=== PATIENT | female | born 1965 | race Caucasian/White ===

== ENCOUNTER 2016-09-29 00:01 | Outpatient (CLI) | payer MEDICAID | END 2016-09-29 23:59 | disposition home or self-care (01) | LOC: D.RAD 00:01 | DX: M25.561 Pain in right knee (principal) ==

== ENCOUNTER → 2016-10-20 08:26 | Outpatient (CLI) | payer MEDICAID | LOC: D.MRI 10-15 15:30 | DX: M25.561 Pain in right knee (principal) ==

== ENCOUNTER 2016-12-14 20:15 | Emergency (ER) | payer MEDICAID | END 2016-12-14 21:10 | disposition left against medical advice (07) | LOC: D.ER 20:15 | DX: R52 Pain, unspecified (principal) ==

== ENCOUNTER 2017-06-14 08:02 | Emergency (ER) | payer MEDICAID ==
[2017-06-18] MEDS ORDERED: SEROQUEL50 MG PO (11:39)
[2017-06-18] MEDS ORDERED: BUSPAR 15 MG TA15 MG PO (11:40)
[2017-06-18] MEDS ORDERED: KLONOPIN1 MG PO (11:40)
[2017-06-18] MEDS ORDERED: TOPROL XL25 MG PO (11:41)
[2017-06-19 13:50] VITALS: BMI 29.8
== END 2017-06-14 09:42 | disposition home or self-care (01) ==
LOC: D.ER 08:02
DX: S52.502A Unspecified fracture of the lower end of left radius, initial encounter for closed fracture (principal); S52.532A Colles' fracture of left radius, initial encounter for closed fracture; W06.XXXA Fall from bed, initial encounter; Y93.89 Activity, other specified; Y92.013 Bedroom of single-family (private) house as the place of occurrence of the external cause; I10 Essential (primary) hypertension; B19.20 Unspecified viral hepatitis C without hepatic coma

== ENCOUNTER 2017-06-19 09:55 | Day surgery (SDC) | payer MEDICAID ==
[~2017-06-19] VITALS: Ht 170.2 cm; Wt 86.2 kg
[~2017-06-19 09:55] MED LIST: BUSPAR 15 MG TA15 MG PO; KLONOPIN1 MG PO; SEROQUEL50 MG PO; TOPROL XL25 MG PO
[2017-06-19 12:36] LABS: HEMATOCRIT 36.8 % (36.0-48.0); HEMOGLOBIN 12.4 g/dL (12-16); MCHC 33.7 g/dL (31.0-37.0); MCV 97.9 fL (80.0-100.0); MEAN PLATELET VOLUME 9.4 fL (7.4-10.4); RBC 3.76 10x6/uL (4.00-5.40)
[2017-06-19 12:52] LABS: APTT 29.6 SECONDS (22.8-39.4); INR 1.09 (0.85-1.17); PROTIME 13.7 SECONDS (11.6-15.0)
[2017-06-19 13:02] LABS: ALBUMIN 3.2 g/dL (3.4-5.0); ALKALINE PHOSPHATASE 70 U/L (46-116); ALT (SGPT) 30 U/L (10-68); BILIRUBIN - TOTAL 0.88 mg/dL (0.2-1.3); CALC OSMOLALITY 275 mosm/kg (275-300); CALCIUM 8.8 mg/dL (8.5-10.1); CARBON DIOXIDE 27.8 mmol/L (21.0-32.0); CHLORIDE - SERUM 104 mmol/L (98-107); CREATININE - SERUM 0.6 mg/dL (0.6-1.3); GLUCOSE 107 mg/dL (74-106); POTASSIUM - SERUM 3.7 mmol/L (3.5-5.1); PROTEIN - SERUM 6.5 g/dL (6.4-8.2); SODIUM 140 mmol/L (136-145); UREA NITROGEN 5 mg/dL (7-18); eGFR NON AFRICAN AMERICAN > 90 mL/min (90-120)
[2017-06-19 13:50] VITALS: Ht 170.2 cm; Wt 86.2 kg
[2017-06-19] MEDS ORDERED: PERCOCET 10/3251 TA1 PO (15:13)
[2017-06-19] MEDS ORDERED: HYDROCODONE-APA1 TAB PO (17:34)
--- NOTE | 2017-06-19 20:58 | NUR ---
1735 BACK FROM ORID OF LEFT WRIST. ARM IN SLING ICED AND ELEVATED. FINGERS NOT SWOLLEN COLOR PINK,FINGERS NUMB.
--- NOTE | 2017-06-19 21:03 | NUR ---
1805 LT ARM IN SLING CAP REFILL IMMEDIATE. COLOR PINK. ICED AND ELEVATED.
--- NOTE | 2017-06-19 21:07 | NUR ---
1835 IV DCD CATHETER INTACT. WENT OVER DISCHARGE INSTRUCTIONS AND VERBALLY UNDERSTANDS, WENT OVER FOLLOW UP BLOCK INFORMATION SCRIPT AND VERBALLY UNDERSTANDS, INSTRUCTED TO KEEP SLING ON TIL FULL FEELING OF ARM AND ICE AND ELEVATE.
--- NOTE | 2017-06-19 21:08 | NUR ---
1840 TO HOME VIA W/C WITH SPOUSE.
--- NOTE | 2017-06-25 09:04 | OP ---
PATIENT NAME: LING GALLEGOS MEDICAL RECORD: [id number] :65 LOCATION:[facility] ADMISSION DATE: SURGEON: NARESH DELEON MD DATE OF OPERATION: 06/19/2017 PREOPERATIVE DIAGNOSIS: Left distal radius fracture. POSTOPERATIVE DIAGNOSIS: Left distal radius fracture. PROCEDURE: Open reduction internal fixation of left distal radius fracture. SURGEON: Naresh Deleon MD ANESTHESIA: General. INTRAOPERATIVE COMPLICATIONS: None. SUMMARY OF PATHOLOGIC FINDINGS: The patient had a distal radius fracture that was displaced; however, it was not articular, reduced nicely and was held nicely with a volar plate from [place]. OPERATIVE SUMMARY IN DETAIL: After obtaining the appropriate preoperative orthopedic surgery consent as well as anesthetic consultation, evaluation and clearance, the patient was brought to the operating room and placed on the operating table in placed in supine position. After general laryngeal mask airway was administered, tourniquet was placed about the proximal aspect of the left upper extremity. Left upper extremity was then prepped and draped in routine sterile fashion. The arm was elevated and exsanguinated, tourniquet inflated to 250 mmHg. Routine curvilinear incision was made in keeping Herb's volar approach. A formal carpal tunnel release was performed and this was taken down to the FCR, which was used as a landmark. Median nerve was identified and retracted to the ulnar side. Pronature quadratus was taken down. Plate was then positioned after a reduction maneuver was performed. Serial and sequential drill and fill were done with a combination of both locking and nonlocking compression screws. Final radiographs were submitted under fluoroscopy for radiologist review. The wound was copiously irrigated and closed with 2-0 Vicryl, followed 4-0 Prolene in a running fashion. Sterile dressings were applied. Tourniquet was deflated. The patient was awakened and taken to the recovery room in stable condition. All final needle and sponge counts were correct. TRANSINT:[id number] Voice Confirmation ID: [id number] DOCUMENT ID: [id number] NARESH DELEON MD at 0904 CC: [id number] DICTATION DATE: 06/19/17 1849 SUPERVISOR STITCHING DEPARTMENT: 06/19/17 2208 [facility] 06/19/17 [id number] [place] [address]
== END 2017-06-19 18:40 | disposition home or self-care (01) ==
LOC: D.OPS 09:55 → D.PAN 12:15 → D.OPS 12:30 → D.PAN 12:35 → D.OPS 18:40
PROVIDERS: Anesthesiology
DX: S52.502A Unspecified fracture of the lower end of left radius, initial encounter for closed fracture (principal); I10 Essential (primary) hypertension; G47.30 Sleep apnea, unspecified; Z01.812 Encounter for preprocedural laboratory examination

== ENCOUNTER 2017-07-23 10:17 | Emergency (ER) | payer MEDICARE ==
[2017-06-19 13:50] VITALS: BMI 29.8
[~2017-07-23 10:17] MED LIST changes: +HYDROCODONE-APA1 TAB PO; +PERCOCET 10/3251 TA1 PO
== END 2017-07-23 12:30 | disposition home or self-care (01) ==
LOC: D.ER 10:17
DX: Z98.890 Other specified postprocedural states (principal); G89.18 Other acute postprocedural pain; B19.20 Unspecified viral hepatitis C without hepatic coma; I10 Essential (primary) hypertension

== ENCOUNTER 2017-11-13 10:00 | Day surgery (SDC) | payer MEDICARE ==
[2017-11-12 13:55] LABS: HEMATOCRIT 37.9 % (36.0-48.0); HEMOGLOBIN 13.2 g/dL (12-16); MCH 33.7 pg (26.0-34.0); MCHC 34.8 g/dL (31.0-37.0); MCV 96.7 fL (80.0-100.0); MEAN PLATELET VOLUME 9.1 fL (7.4-10.4); RBC 3.92 10x6/uL (4.00-5.40); RDW 13.8 % (11.5-14.5); WBC 7.5 10x3/uL (4.8-10.8)
[2017-11-12 14:09] LABS: ALBUMIN 3.7 g/dL (3.4-5.0); ALKALINE PHOSPHATASE 57 U/L (46-116); ALT (SGPT) 42 U/L (10-68); BILIRUBIN - TOTAL 0.96 mg/dL (0.2-1.3); CALC OSMOLALITY 257 mosm/kg (275-300); CALCIUM 9.4 mg/dL (8.5-10.1); CARBON DIOXIDE 20.3 mmol/L (21.0-32.0); CHLORIDE - SERUM 96 mmol/L (98-107); CREATININE - SERUM 0.5 mg/dL (0.6-1.3); GLUCOSE 96 mg/dL (74-106); PROTEIN - SERUM 8.3 g/dL (6.4-8.2); SODIUM 130 mmol/L (136-145); UREA NITROGEN 4 mg/dL (7-18); eGFR NON AFRICAN AMERICAN > 90 mL/min (90-120)
[~2017-11-13] VITALS: Ht 170.2 cm; Wt 83.6 kg
--- NOTE | ~2017-11-13 | OP ---
PATIENT NAME: LING GALLEGOS MEDICAL RECORD: [id number] :65 LOCATION:[facility] ADMISSION DATE: SURGEON: CRISTIAN CHICAS MD DATE OF OPERATION: 11/13/2017 PREOPERATIVE DIAGNOSES: 1. Intractably symptomatic hemorrhoids. 2. Internal hemorrhoidal bleeding. POSTOPERATIVE DIAGNOSES: 1. Intractably symptomatic hemorrhoids. 2. Internal hemorrhoidal bleeding. PROCEDURE: Procedure for prolapse and hemorrhoids. SURGEON: Cristian Chicas MD LENS SILVERER: None. BLOOD LOSS: Minimal. ANESTHESIA: General. COMPLICATIONS: None. The risks, possible complications and alternatives to procedure were discussed with the patient. She elects to proceed. OPERATIVE COURSE: The patient was conveyed to the operating room electively on 11/13/2017. General anesthesia was induced by the anesthesia staff. The patient was placed in the lithotomy position. The buttocks and perineum were sterilely prepped and draped. The buttocks were taped laterally. The anus was dilated laterally to 3 fingers. An anal retractor was placed and I carefully examined the internal hemorrhoids as well as the external hemorrhoids. There was no anal fissure. No anal fistula. A PPH dilator and retractor were then placed in the anus and the retractor was sutured to the surrounding anoderm with 2-0 silks. A mucosal pursestring suture of 2-0 Prolene was applied 1 cm cephalad to the clear retractor. The PPH stapling device was inserted with the anvil cephalad to the pursestring suture, which was then tightened and tied. The stapling device was engaged. It was held in place for 3 minutes and then fired. It was then removed under direct vision. There was an entire donut of lower rectal mucosal and internal hemorrhoidal tissue within the stapling device. Bleeding along the anastomotic staple line was controlled with [id number] 3-0 Vicryls. A combination of sterile preparation and Marcaine were used to infiltrate the perianal tissues. Gelfoam was packed within the anus and lower rectum. A topical anesthetic cream was applied to the external hemorrhoids after I excised a small posterior line skin tag that was not a sentinel tag. This was excised with electrocautery and then closed with a single horizontal mattress 3-0 Vicryl suture. The patient was then extubated and conveyed to post-anesthesia care unit where she was in the stable condition. She tells me that her insurance company has OPERATIVE REPORT [id number] ELLING [place] told her that she must stay overnight in order to have her operation paid for. Therefore, I will place her in observation bed overnight and she can be dismissed home in the morning. TRANSINT:[id number] Voice Confirmation ID: [id number] DOCUMENT ID: [id number] CRISTIAN CHICAS MD at 1227 CC: RENE ECHEVARRIA [id number] DICTATION DATE: 11/13/17 1517 FINANCIAL SOLUTIONS ADVISOR: 11/13/[address] [facility] 11/14/17 [facility] [address] [place] [address]
[2017-11-13 11:43] VITALS: BP 108/63; BMI 28.9
[2017-11-13 18:29] VITALS: BP 126/68; Ht 170.2 cm; Wt 83.6 kg
[2017-11-14 05:42] LABS: BASOPHILS 0.1 % (0-2); EOSINOPHILS 0 % (0-7); HEMATOCRIT 35.6 % (36.0-48.0); IMMATURE GRANULOCYTES 0.4 % (0-5); LYMPHOCYTES 11.5 % (15-50); MCH 33.1 pg (26.0-34.0); MCHC 33.7 g/dL (31.0-37.0); MCV 98.1 fL (80.0-100.0); MEAN PLATELET VOLUME 9.5 fL (7.4-10.4); MONOCYTES 4.6 % (2-11); NEUTROPHILS 83.4 % (40-80); PLATELET COUNT 226 10x3/uL (130-400); RBC 3.63 10x6/uL (4.00-5.40); RDW 13.8 % (11.5-14.5); WBC 8.3 10x3/uL (4.8-10.8)
[2017-11-14 06:10] LABS: ALBUMIN 3.1 g/dL (3.4-5.0); ALKALINE PHOSPHATASE 59 U/L (46-116); CARBON DIOXIDE 22.8 mmol/L (21.0-32.0); CHLORIDE - SERUM 104 mmol/L (98-107); MAGNESIUM - SERUM 2.1 mg/dL (1.8-2.4); PHOSPHOROUS 3.7 mg/dL (2.5-4.9); POTASSIUM - SERUM 4.2 mmol/L (3.5-5.1); PROTEIN - SERUM 7.2 g/dL (6.4-8.2); SODIUM 135 mmol/L (136-145); UREA NITROGEN 5 mg/dL (7-18)
[2017-11-14 06:16] LABS: ALT (SGPT) 28 U/L (10-68); CALC OSMOLALITY 269 mosm/kg (275-300); CREATININE - SERUM 0.7 mg/dL (0.6-1.3); GLUCOSE 157 mg/dL (74-106); eGFR NON AFRICAN AMERICAN > 90 mL/min (90-120)
== END 2017-11-14 07:15 | disposition home or self-care (01) ==
LOC: D.M2 10:00 → D.OPS 10:00 → D.PAN 12:30 → D.M2 17:44 → D.OPS 11-14 07:15
PROVIDERS: Anesthesiology; Surgery
DX: K64.8 Other hemorrhoids (principal); Z01.812 Encounter for preprocedural laboratory examination

== ENCOUNTER → 2017-12-17 12:11 | Outpatient (CLI) | payer MEDICARE ==
[2017-11-13 18:29] VITALS: BMI 28.9
== END | disposition home or self-care (01) ==
LOC: D.LABREF 12:11
DX: R19.7 Diarrhea, unspecified (principal)

== ENCOUNTER → 2019-10-28 10:44 | Outpatient (CLI) | payer MEDICARE, MEDICAID ==
[2017-11-13 18:29] VITALS: BMI 28.9
== END | disposition home or self-care (01) ==
LOC: D.US 10:30
PROVIDERS: ATTEND Family Medicine
DX: M79.89 Other specified soft tissue disorders (principal)

== ENCOUNTER 2020-01-08 18:46 | Emergency (ER) | payer MEDICARE, MEDICAID ==
[2017-11-13 18:29] VITALS: BMI 28.9
== END 2020-01-08 18:56 | disposition left against medical advice (07) ==
LOC: D.ER 18:46
DX: R06.02 Shortness of breath (principal)

== ENCOUNTER 2020-10-09 17:00 | Emergency (ER) | payer MEDICARE, MEDICAID ==
[~2020-10-09] VITALS: Ht 170.2 cm; Wt 69.1 kg
[2020-10-09 17:05] VITALS: Ht 170.2 cm; Wt 69.1 kg
[2020-10-09] MEDS ORDERED: VOLTAREN75 MG PO (19:49)
[2020-10-09] MEDS ORDERED: ULTRAM50 MG PO (19:49)
[2020-10-09] MEDS ORDERED: HYDROCODON-ACE1 EAC7 PO (20:04)
[2020-10-09 20:59] VITALS: BP 159/65
== END 2020-10-09 20:32 | disposition home or self-care (01) ==
LOC: D.ER 17:00
DX: S62.91XA Unspecified fracture of right hand, initial encounter for closed fracture (principal); M79.641 Pain in right hand; I10 Essential (primary) hypertension; Z72.0 Tobacco use; W19.XXXA Unspecified fall, initial encounter; Y93.9 Activity, unspecified; Y92.9 Unspecified place or not applicable

== ENCOUNTER 2020-10-18 09:09 | Day surgery (SDC) | payer MEDICARE, MEDICAID ==
[~2020-10-18] VITALS: Ht 170.2 cm; Wt 66.8 kg
--- NOTE | ~2020-10-18 | OP ---
PATIENT NAME: LING GALLEGOS MEDICAL RECORD: [id number] :65 LOCATION:[facility] ADMISSION DATE: SURGEON: VERN AGUSTIN MD DATE OF OPERATION: 10/18/2020 PREOPERATIVE DIAGNOSIS: Right fifth metacarpal neck fracture. POSTOPERATIVE DIAGNOSIS: Right fifth metacarpal neck fracture. PROCEDURE PERFORMED: Open reduction and pinning of right fifth metacarpal neck. INDICATIONS FOR THE PROCEDURE: Ms. Gallegos is a 55-year-old right hand dominant female who injured her right hand approximately 1 week ago when she fell and hit it. She complained of pain and swelling following the incident and was seen in the Emergency Department where x-rays showed a fracture of the fifth metacarpal neck. On evaluation, she was noted to have some rotational deformity was therefore elected to proceed with surgery for operative repair. Risks, benefits and alternatives of surgery were discussed with the patient and consent was obtained. DESCRIPTION OF THE PROCEDURE: The patient was met in the holding area where her identity and confirmation of procedure was performed. The right upper extremity was marked. She was taken to the operating room where she was placed supine on the operating table and anesthesia was administered. Tourniquet was applied to the right arm and the right arm was prepped and draped in a sterile fashion. The patient received preoperative antibiotics and timeout was performed before initiating the case. On initiation of the case, the arm was exsanguinated and the tourniquet was raised. Total tourniquet time was 16 minutes. A closed reduction was attempted, but there was still some rotation of the metacarpal head. The incision was therefore made along the radial border of the fifth metacarpal head and a freer was then inserted, which was able to assist with reduction. Once we were able to hold it reduced, two 0.45 K-wires were placed distal to proximal. We began with placement of the radial K-wire, advanced it across the fracture and into the metacarpal shaft. We then placed the radial K-wire in the same fashion, it extended down the metacarpal shaft. K-wires were advanced to the appropriate depth. X-ray showed good alignment and stabilization of the metacarpal neck fracture. K-wires were bent and cut. Final images were obtained. The wound was irrigated thoroughly with saline. The incision site was closed with Prolene suture. Xeroform was placed around the pin sites and over the wound and this was covered with a sterile dressing. The patient was placed into an ulnar gutter splint, turned back over to anesthesia where she was awakened, extubated, and taken to recovery room in stable condition. POSTOPERATIVE PLAN: The patient is going to return home with her family today. She needs to remain nonweightbearing with the right upper extremity. We will plan to see her back in clinic in 2 weeks to transition her to a cast. We can get x-rays in the splint when we see her back in clinic. COMPLICATIONS: None. ESTIMATED BLOOD LOSS: 5 mL. ANESTHESIA: General LMA. OPERATIVE REPORT [id number] LING GALLEGOS TRANSINT:[id number] Voice Confirmation ID: [id number] DOCUMENT ID: [id number] VERN AGUSTIN MD CC: [id number] DICTATION DATE: 10/18/20 1504 INTERNAL AFFAIRS COMMANDER: 10/18/20 1538 [facility] [address] [id number]
[~2020-10-18 09:09] MED LIST changes: +HYDROCODON-ACE1 EAC7 PO; +ULTRAM50 MG PO; +VOLTAREN75 MG PO
[2020-10-18 09:35] LABS: BASOPHILS 0.8 % (0-2); EOSINOPHILS 1.3 % (0-7); HEMATOCRIT 41.1 % (36.0-48.0); HEMOGLOBIN 14.2 g/dL (12-16); IMMATURE GRANULOCYTES 0.5 % (0-5); LYMPHOCYTE ABS# 1.37 10x3/uL (1.18-3.74); LYMPHOCYTES 34.9 % (15-50); MCH 32.6 pg (26.0-34.0); MCHC 34.5 g/dL (31.0-37.0); MCV 94.3 fL (80.0-100.0); MEAN PLATELET VOLUME 9.5 fL (7.4-10.4); MONOCYTES 13.7 % (2-11); NEUTROPHIL ABS# 1.92 10x3/uL (1.56-6.13); NEUTROPHILS 48.8 % (40-80); PLATELET COUNT 203 10x3/uL (130-400); RBC 4.36 10x6/uL (4.00-5.40); RDW 13.3 % (11.5-14.5); WBC 3.9 10x3/uL (4.8-10.8)
[2020-10-18 09:42] LABS: CALC OSMOLALITY 268 mosm/kg (275-300); CALCIUM 9.4 mg/dL (8.5-10.1); CARBON DIOXIDE 25.1 mmol/L (21.0-32.0); CHLORIDE - SERUM 99 mmol/L (98-107); CREATININE - SERUM 0.6 mg/dL (0.6-1.3); GLUCOSE 109 mg/dL (74-106); POTASSIUM - SERUM 4.1 mmol/L (3.5-5.1); SODIUM 135 mmol/L (136-145); UREA NITROGEN 8 mg/dL (7-18); eGFR NON AFRICAN AMERICAN > 90 mL/min (90-120)
[2020-10-18 10:11] VITALS: BP 124/70; Ht 170.2 cm; Wt 66.8 kg
[2020-10-18 10:16] LABS: HCG URINE NEGATIVE (NEGATIVE)
--- NOTE | 2020-10-18 16:30 | NUR ---
1510 VS STABLE AND PT WANTING TO GET OUT OF BED TO URINATE. C/O PAIN TO RIGHT ARM. 1515 ASSISTED UP TO BATHROOM TO VOID. VOIDED X1. 1615 IV REMOVED AND INSTRUCTIONS GIVEN. SLING TO RIGHT ARM PER REQUEST
== END 2020-10-18 16:20 | disposition home or self-care (01) ==
LOC: D.OPS 09:09
PROVIDERS: Anesthesiology; ATTEND Orthopaedic Surgery
DX: M79.641 Pain in right hand (principal); S62.336A Displaced fracture of neck of fifth metacarpal bone, right hand, initial encounter for closed fracture; X58.XXXA Exposure to other specified factors, initial encounter; I10 Essential (primary) hypertension; F17.200 Nicotine dependence, unspecified, uncomplicated